=== PATIENT | female | born 1950 | race Caucasian/White ===

== ENCOUNTER 2016-08-25 05:28 | Emergency (ER) | payer MEDICARE, BC ==
[2016-08-25 05:39] VITALS: BP 174/90
--- NOTE | 2016-08-25 06:38 | CT ---
Head CT Technique: Multiple axial sections through the brain were obtained. Intravenous contrast was not utilized. Comparison: No previous intracranial imaging is available. Findings: Ventricles along the basal cisterns and sulci over the convexities are within normal limits for the patient's age. No abnormal parenchymal densities are seen. No evidence of intracranial hemorrhage. No midline shift or mass effect is seen. Bone window settings were reviewed which shows minimal mucosal thickening within the right sphenoid sinus. Other visualized sinuses are clear. No acute calvarial abnormality is seen. Impression: 1. Slight mucosal thickening within the right sphenoid sinus which is felt to be incidental. 2. No acute intracranial abnormality is identified. Diagnostic code #2
--- NOTE | 2016-08-25 06:58 | EDM.PDOC ---
ED HPI NEURO - General Chief Complaint: Neurological Problem Stated Complaint: tingling and right arm pain Time Seen by Provider: 08/25/16 05:46 Source of Information: Reports: Patient History Limitations: Reports: No limitations - History of Present Illness INITIAL COMMENTS - FREE TEXT/NARRATIVE: The patient was woke up at 1am this morning with right arm pain, numbness and tingling. She denies neck pain, headache, chest pain, shortness of breath, abdominal pain, nausea, vomiting, fever or chills. This has never happened before. She did not hurt it in any way that she knows of. The pain was from the shoulder all the way down to her fingers. The pain has lessened but she still has some tingling. Timing/Duration: Reports: Hour(s): (1am) Location (Neuro Complaint): Reports: upper extremity, right Quality (Neuro Complaint): Reports: numbness, tingling, other (pain) Severity: moderate Improves with: Reports: None Worsens with: Reports: None Context, General: Reports: Other (She was sleeping when it started) Associated Symptoms: Reports: no other symptoms - Related Data Allergies/ADRs: Allergies Allergy/AdvReac Type Severity Reaction Status Date / Time No Known Allergies Allergy Verified 08/25/16 05:34 Home Meds: Home Meds Hydrochlorothiazide [Hydrochlorothiazide] 12.5 mg PO DAILY 01/16/15 [History] Metoprolol Succinate [Toprol XL] 25 mg PO BID 01/16/15 [History] Past Medical History HEENT History: Reports: Other (see below) Other HEENT History: wears glasses Cardiovascular History: Reports: Hypertension - Past Surgical History Female Surgical History: Reports: Hysterectomy Musculoskeletal Surgical History: Reports: Other (see below) Other Musculoskeletal Surgeries/Procedures:: bunion chente Social & Family History - Tobacco Use Smoking Status *Q: Never Smoker Second Hand Smoke Exposure: No - Recreational Drug Use Recreational Drug Use: No ED ROS GENERAL - Review of Systems Review Of Systems: See Below Constitutional: Reports: no symptoms HEENT: Reports: No symptoms Respiratory: Reports: No Symptoms Cardiovascular: Reports: No symptoms Endocrine: Reports: no symptoms GI/Abdominal: Reports: No symptoms : Reports: no symptoms Musculoskeletal: Reports: other (Right arm pain, numbness and tingling) Skin: Reports: no symptoms Neurological: Reports: No Symptoms ED EXAM, NEURO - Physical Exam Exam: See Below Exam Limited By: No limitations General Appearance: alert, no apparent distress Ears: normal external exam Nose: normal inspection Head Exam: atraumatic, normocephalic Neck: normal inspection, supple, non-tender Respiratory/Chest: no respiratory distress, lungs clear, normal breath sounds Cardiovascular: regular rate, rhythm, no edema, no murmur GI/Abdominal: soft, non tender, no organomegaly Neurological: alert, no motor/sensory deficits, oriented x 3 Extremities: normal inspection, normal range of motion, non-tender, arm pain. No: increased warmth, pallor, redness EKG INTERPRETATION EKG Date: 08/25/16 Time: 05:59 Rhythm: NSR Rate (beats/min): 61 [place]: LAD-left axis deviation P-wave: present QRS: normal ST-T: normal QT: normal Course - Vital Signs Last Recorded V/S: Last Vital Signs Temp 97.1 F 08/25/16 05:34 Pulse 73 08/25/16 05:34 Resp 16 08/25/16 05:34 BP 174/90 H 08/25/16 05:34 Pulse Ox 97 08/25/16 05:34 - Orders/Labs/Meds Orders: Active Orders 24 hr Category Date Time Status Cardiac Monitoring [RC] . DIRECTED Care 08/25/16 05:53 Active EKG Documentation Completion [RC] STAT Care 08/25/16 05:54 Active Labs: Laboratory Tests 08/25/16 08/25/16 08/25/16 Range/Units 06:05 06:05 06:05 WBC 5.55 (3.98-10.04) K/mm3 RBC 4.29 (3.98-5.22) M/mm3 Hgb 12.6 (11.2-15.7) gm/L Hct 37.8 (34.1-44.9) % MCV 88.1 (79.4-94.8) fl MCH 29.4 (25.6-32.2) pg MCHC 33.3 (32.2-35.5) g/dl RDW Std Deviation 43.0 (36.4-46.3) fL Plt Count 238 (182-369) K/mm3 MPV 9.2 L (9.4-12.3) fl Neut % (Auto) 63.3 (34.0-71.1) % Lymph % (Auto) 26.7 (19.3-51.7) % [place] % (Auto) 6.8 (4.7-12.5) % Eos % (Auto) 2.3 (0.7-5.8) Baso % (Auto) 0.7 (0.1-1.2) % Neut # (Auto) 3.51 (1.56-6.13) K/mm3 Lymph # (Auto) 1.48 (1.18-3.74) K/mm3 [place] # (Auto) 0.38 H (0.24-0.36) K/mm3 Eos # (Auto) 0.13 (0.04-0.36) K/mm3 Baso # (Auto) 0.04 (0.01-0.08) K/mm3 PT 9.8 (8.0-13.0) SECONDS INR 0.90 Sodium 142 (136-145) mEq/L Potassium 3.8 (3.5-5.1) mEq/L Chloride 104 (98-107) mEq/L Carbon Dioxide 28 (21-32) mEq/L Anion Gap 13.8 (5-15) BUN 17 (7-18) mg/dL Creatinine 1.0 (0.55-1.02) mg/dL Est Cr Clr Drug Dosing 51.10 mL/min Estimated GFR (MDRD) 55 (>60) mL/min BUN/Creatinine Ratio 17.0 (14-18) Glucose 108 (80-115) mg/dL Calcium 9.0 (8.5-10.1) mg/dL Total Bilirubin 0.4 (0.2-1.0) mg/dL AST 23 (15-37) U/L ALT 34 (14-59) U/L Alkaline Phosphatase 93 (46-116) U/L Troponin I < 0.017 (0.00-0.056) ng/mL Total Protein 7.5 (6.4-8.2) g/dl Albumin 3.7 (3.4-5.0) g/dl Globulin 3.8 gm/dL Albumin/Globulin Ratio 1.0 (1-2) - Re-Assessments/Exams Free Text/Narrative Re-Assessment/Exam: 08/25/16 06:58 I ordered an EKG that was negative. Her head CT shows nothing acute. Her CBC and CMP look good. Her troponin is negative. This does not appear to be a stroke or radiculopathy. It appears to be a peripheral neuropathy. The cause of which I am not sure of at this time. Her arm is almost near normal right now. I will discharge her home to follow up with Dr Xie. Departure - Departure Time of Disposition: 07:05 Disposition: Home, Self-Care 01 Condition: good Clinical Impression: Right arm pain Peripheral neuropathy Qualifiers: Peripheral neuropathy type: idiopathic neuropathy, unspecified Qualified Code(s ): G60.9 - Hereditary and idiopathic neuropathy, unspecified Referrals: Rick Xie MD [Primary Care Provider] - 1 Week Forms: ED Department Discharge Additional Instructions: Take tylenol or motrin for pain. Follow up with Dr Xie next week. Please return if you are worse. - My Orders Last 24 Hours: My Active Orders 08/25/16 05:53 Cardiac Monitoring [RC] . DIRECTED 08/25/16 05:54 EKG Documentation Completion [RC] STAT - Assessment/Plan Last 24 Hours: My Active Orders 08/25/16 05:53 Cardiac Monitoring [RC] . DIRECTED 08/25/16 05:54 EKG Documentation Completion [RC] STAT
== END 2016-08-25 07:27 | disposition home or self-care (01) ==
LOC: JD.ED 05:28
DX: G60.9 Hereditary and idiopathic neuropathy, unspecified (principal); M79.601 Pain in right arm; I10 Essential (primary) hypertension; Z90.710 Acquired absence of both cervix and uterus; R20.2 Paresthesia of skin
CPT/HCPCS: 36415; 70450; 70450-26; 80053; 84484; 85025; 85610; 93005; 99284; 99284-25